=== PATIENT | female | born 1940 | race Caucasian/White ===

== ENCOUNTER 2017-01-22 22:45 | Emergency (ER) | payer MEDICARE, OTHER ==
--- NOTE | 2017-01-23 00:50 | ED ---
Head Injury - HPI Summary HPI Summary: 76F presents with head injury today. She states she had a couple drinks at [employer]. She then walked down the driveway and slipped on the ice. She landed on the left side of her face and left hip. She has minimal pain in left hip but is able to ambulate. She denies any chest pain, SOB, or abdominal pain. She denies any neck pain. She denies any upper extremity pain. She denies any LOC. She denies any nausea or vomiting. She takes a baby aspirin a day. She is not on blood thinners. - History Of Current Complaint Chief Complaint: EDHeadInjury Stated Complaint: FALL/ HEAD INJURY Time Seen by Provider: 01/23/17 00:23 Pain Intensity: 2 - Allergies/Home Medications Allergies/Adverse Reactions: Allergies Allergy/AdvReac Type Severity Reaction Status Date / Time Codeine Allergy Unknown Verified 10/15/13 12:57 Reaction Details PMH/Surg Hx/FS Hx/Imm Hx Endocrine/Hematology History: Denies: Hx Anticoagulant Therapy Cardiovascular History: Reports: Hx Hypertension Infectious Disease History: No Infectious Disease History: Denies: Traveled Outside the [place] in Last 30 Days - Family History Known Family History: Positive: Hypertension - Social History Alcohol Use: Daily Substance Use Type: Reports: None Smoking Status (MU): Former Smoker Review of Systems Negative: Fever Negative: Chest Pain Negative: Shortness Of Breath Positive: Bruising, Other - laceration left side of face Positive: Headache All Other Systems Reviewed And Are Negative: Yes Physical Exam Triage Information Reviewed: Yes Vital Signs On Initial Exam: Initial Vitals Temp Pulse Resp BP Pulse Ox 96.1 F 80 18 143/64 98 01/22/17 22:52 01/22/17 22:52 01/22/17 22:52 01/22/17 22:52 01/22/17 22:52 Vital Signs Reviewed: Yes Appearance: Positive: Well-Appearing Skin: Positive: Warm, Dry, Other - 1/2cm superficial laceration of left side of face Head/Face: Positive: Normal Head/Face Inspection, Other - contusion near left eye, no step off, salcedo sign Eyes: Positive: Normal, EOMI, FLORIN, Conjunctiva Clear ENT: Positive: Normal ENT inspection, Pharynx normal, TMs normal Neck: Positive: Other: - nontender neck Respiratory/Lung Sounds: Positive: Clear to Auscultation, Breath Sounds Present Cardiovascular: Positive: Normal, RRR Abdomen Description: Positive: Nontender, Soft Bowel Sounds: Positive: Present Neurological: Positive: Sensory/Motor Intact, Alert, Oriented to Person Place, Time, CN Intact II-III Psychiatric: Positive: Normal - Pamela Coma Scale Coma Scale Total: 15 Procedures - Laceration/Wound Repair 1 Location: face Description: Linear Length, Depth and Shape: 1/2cm superficial Irrigated w/ Saline (ccs): 30 Laceration/Wound Explored: no foreign body removed Closure: Skin Adhesive Diagnostics - Vital Signs Vital Signs Temp Pulse Resp BP Pulse Ox 01/22/17 22:52 96.1 F 80 18 143/64 98 - Laboratory Lab Statement: Any lab studies that have been ordered have been reviewed, and results considered in the medical decision making process. - CT brain CT Interpretation: No Acute Changes - no acute fracture. no acute hemorrhage CT Interpretation Completed By: Radiologist Head Injury Course/Dx Course Of Treatment: 76F presents with head injury today. She states she had a couple drinks at [place] [employer]. She then walked down the driveway and slipped on the ice. She landed on the left side of her face and left hip. She has minimal pain in left hip but is able to ambulate. She denies any chest pain, SOB, or abdominal pain. She denies any neck pain. She denies any upper extremity pain. She denies any LOC. She denies any nausea or vomiting. She takes a baby aspirin a day. She is not on blood thinners. on exam no step off, has contusion around left eye with small 1/2cm superficial laceration that cleaned and closed with glue. normal neuro exam. CT brain neg with hematoma superficial near left. warned of signs to return to ED for. patient understand and agrees with plan. - Diagnoses Differential Diagnosis/HQI/PQRI: Concussion Without LOC, Contusion, Laceration Provider Diagnoses: Head injury, Facial contusion, Laceration of face Discharge - Discharge Plan Condition: Good Disposition: HOME Patient Education Materials: Head Injury (ED), Facial Contusion (ED) Referrals: Roma Bentley MD [Primary Care Provider] - Additional Instructions: Glue will fall off on own Place ice on area as needed Take Tylenol for headache every 6 hours Follow up with primary within 5 days Return to ED if develop vomiting, severe headache, change in behavior, or any new or worsening symptoms
[2017-01-23 01:37] VITALS: BP 152/78
--- NOTE | 2017-01-23 07:29 | RAD ---
INDICATION: Intracranial injury COMPARISON: None TECHNIQUE: Noncontrast axial source images were acquired from the skull base to the vertex. FINDINGS: Ventricles/sulci: The ventricles and cisterns are normal in size and configuration for age. Brain parenchyma: There is minor periventricular and subcortical white matter change compatible with chronic ischemia. Intracranial hemorrhage:None. Extra-axial spaces: There are no abnormal extra axial fluid collections or evidence of extra-axial mass. Calvarium: There is no calvarial fracture or other acute calvarial abnormality. There is hyperostosis of the frontal bone Scalp: There is left periportal soft tissue swelling. Paranasal sinuses/mastoid: The paranasal sinuses and mastoid air cells are clear. Other: None. IMPRESSION: No acute intracranial findings. Left periorbital soft tissue swelling
== END 2017-01-23 01:36 | disposition home or self-care (01) ==
LOC: ED 22:45
DX: S09.90XA Unspecified injury of head, initial encounter (principal); S01.81XA Laceration without foreign body of other part of head, initial encounter; S00.83XA Contusion of other part of head, initial encounter; W00.0XXA Fall on same level due to ice and snow, initial encounter; Y93.9 Activity, unspecified; Y92.9 Unspecified place or not applicable; Z79.82 Long term (current) use of aspirin; Z87.891 Personal history of nicotine dependence
CPT/HCPCS: 12011; 70450; 99282

== ENCOUNTER → 2017-10-21 10:44 | Day surgery (SDC) | payer MEDICARE ==
[~2017-10-21 10:44] MED LIST: Diazepam TAB(*) 5 MG ONE; Heparin 2 UNITS/ML IVPREMIX* 1,000 ML IV ONE; Heparin(*) 1000 UNIT/ML 10 ML VIAL CATH LAB IV ONE; Iodixanol* (CONTRAST) 320 MG/ML 100 ML SDV ONE; Lidocaine 1% INJ* 10 MG/ML 30 ML SDV ONE; Midazolam* 1 MG/ML 10 ML VIAL (10 MG) ONE; NS 0.9% 1000 ML* 1,000 ML IV SCH; VERAPAMIL 2.5 MG/ML 2 ML VIAL ** 5 mg/2 ml ONE; diPHENhydraMINE PO* 25 MG ONE; fentaNYL* 50 MCG/ML 2 ML VIAL (100 MCG VIAL) ONE; nitroGLYCERIN DRIP* 25,000 MCG/250 ML BTL ONE
[2017-10-21 11:42] LABS: ABS Basophils 0 10^3/ul (0-0.2); ABS Eosinophils 0.1 10^3/ul (0-0.6); ABS Lymphocytes 1.8 10^3/ul (1.0-4.8); ABS Monocytes 0.5 10^3/ul (0-0.8); ABS Neutrophils 2.8 10^3/ul (1.5-7.7); ABS Nucleated RBC 0 10^3/ul; Eosinophil % 1.6 % (0-6); Hematocrit 41 % (35-47); Hemoglobin 14.1 g/dl (12.0-16.0); Lymphocyte % 34.8 % (25-47); Mean Corpuscular HGB Conc 35 g/dl (31-36); Mean Corpuscular Hemoglobin 32 pg (27-31); Mean Corpuscular Volume 92 fL (80-97); Mean Platelet Volume 8.1 um3 (7.4-10.4); Nucleated Red Blood Cells % 0.3; Platelet Count 332 10^3/ul (150-450); Red Blood Count 4.45 10^6/ul (4.00-5.40); Red Cell Distribution Width 14 % (10.5-15); White Blood Count 5.2 10^3/ul (3.5-10.8)
[2017-10-21 12:10] LABS: EGFR Non-African American 57.3 (>60)
[2017-10-21 15:39] VITALS: BP 130/68
--- NOTE | 2017-10-22 02:06 | CATH ---
CC: Dr. Roma Bentley; Dr. Tacho Escoto, [facility], [place], [place] * CARDIAC CATHETERIZATION: DATE OF PROCEDURE: 10/21/17 - [facility] CAT PROCEDURE: Cardiac catheterization including coronary angiography. INDICATION: Angina, despite maximum medical therapy. The patient is a 77-year-old female, who had an episode of significant chest pain, while she was in [place] this past spring. The patient did not seek medical attention at that time. When she got back to [place], I had seen her in consultation at that time, I had maximized her medical therapy. She underwent a stress test and echocardiogram. Her stress test showed significant chest pain with exertion and EKG changes, her perfusion images were completely normal. The patient has been on beta-blockers and amlodipine to maximum doses and despite that continues to have chest pain with exertion. Cardiac catheterization was recommended. DESCRIPTION OF PROCEDURE: The patient was brought to the procedure room in a fasting state. Informed consent had been obtained prior to the procedure. All labs were reviewed. The patient's right radial area was prepped and draped in the usual fashion. 1% lidocaine was used for local anesthesia. The radial artery was entered by a Seldinger technique and a guidewire was placed. Over the guidewire, a 6-[place] hydrophilic sheath was placed. The patient had an infusion of heparin, verapamil, and nitroglycerin at appropriate doses. The patient underwent coronary angiography using 6-[place] JL4 catheter and a 6- [place] AR1 catheter. At the end of the procedure, all sheaths and catheters were removed. The patient tolerated the procedure well with no complications. A total of 50 mL of Visipaque dye was used and a total of 7.6 minutes of fluoro time was used. FINDINGS: 1. Left main artery: The left main was normal in size. It bifurcated into the LAD and circumflex artery. There was no evidence of stenosis. 2. Left anterior descending artery: The LAD was normal in size. It gave off 1 diagonal vessel. There was no evidence of stenosis. 3. Left circumflex artery: The left circumflex artery was normal in size. It gave off 2 obtuse marginal branches. There was no evidence of stenosis. 4. Right coronary artery: The RCA was a large dominant vessel. The ostium of the right coronary artery had a 99% stenosis with heavy calcification. There was a sluggish flow through the mid right coronary artery at the distal portion of the right coronary artery that was complete occlusion. There was extensive collaterals from the LAD to the distal right coronary artery and posterolateral branch. 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 RECOMMENDATION: The patient will continue on maximum medical therapy. The patient will be evaluated for possible rotablation of the right coronary artery to reestablish flow. [id number]/[facility] #: [id number] [facility]ALTH SYSTEMEmmanuel
== END | disposition home or self-care (01) ==
LOC: CHICATH 10:44
PROVIDERS: ATTEND Specialist
DX: I25.10 Atherosclerotic heart disease of native coronary artery without angina pectoris (principal); I25.84 Coronary atherosclerosis due to calcified coronary lesion; I25.82 Chronic total occlusion of coronary artery; R07.9 Chest pain, unspecified; R94.39 Abnormal result of other cardiovascular function study
CPT/HCPCS: 36415; 80048; 85025; 93454; 99156; 99157; A9270-GY; C1887; J1644; J2250; J3010

== ENCOUNTER 2023-10-08 08:38 | Observation (INO) ==
[2023-10-08 08:56] LABS: ABS Eosinophils 0.1 10^3/uL (0.0-0.5); ABS Lymphocytes 1.9 10^3/uL (1.0-4.8); ABS Monocytes 0.3 10^3/uL (0.0-0.9); ABS Neutrophils 3.1 10^3/uL (1.5-7.6); ABS Nucleated RBC 0.01 10^3/ul; Eosinophil % 1.3 %; Hematocrit 40.9 % (35-45); Hemoglobin 13.8 g/dL (11.5-14.3); Lymphocyte % 35.1 %; Mean Corpuscular Hgb Conc 33.8 g/dL (31-36); Mean Corpuscular Volume 91.6 fL (80-97); Mean Platelet Volume 8.3 fL (7.5-11.2); Nucleated Red Blood Cells % 0.2 %/100WBC (0.0-0.8); Platelet Count 313 10^3/uL (150-450); Red Blood Count 4.47 10^6/uL (3.63-4.92); Red Cell Distribution Width 12.8 % (12-17); White Blood Count 5.5 10^3/uL (3.8-11.8)
[2023-10-08] MEDS: Iodixanol (CONTRAST) 320 MG/ML 100 ML SDV IV ONE (09:02)
[2023-10-08 09:06] LABS: Activated Partial Thrombo Time 28.7 seconds (26.0-38.0); INR 1.07 (0.85-1.14)
[2023-10-08] MEDS: Ondansetron 4 mg VIAL 2 MG/ML 2 ml VIAL IV ONE (09:29)
[2023-10-08] MEDS: NS 0.9% 1000 ml BAG 1,000 ML IV ONE (09:29)
[2023-10-08 09:46] LABS: Albumin 4.5 g/dL (3.2-5.2); Albumin/Globulin Ratio 1.5 (1-3); Calcium 9.5 mg/dL (8.6-10.3); Creatinine, Serum 0.84 mg/dL (0.51-0.95); Direct Bilirubin 0.1 mg/dL (0.03-0.18); HDL Cholesterol 86.2 mg/dL; Indirect Bilirubin 0.7 mg/dL (0.3-1.0); Potassium 3.5 mmol/L (3.5-5.0); Total Bilirubin 0.8 mg/dL (0.2-1.0); Total Protein 7.5 g/dL (6.4-8.9); eGFR CKD-EPI 69.8 (>60)
[2023-10-08 10:37] LABS: High Sensitivity Troponin 1 Hr < 3 pg/mL (<15)
[2023-10-08] MEDS: Enoxaparin 40 MG/0.4 ML SYR SUBCUT SCH (12:42)
[2023-10-08] MEDS ORDERED: Sulfur Hexaflouride MICROSPHR 25 MG VIAL IV PRN (14:33)
[2023-10-09 06:00] LABS: Hematocrit 39.5 % (35-45); Hemoglobin 13.1 g/dL (11.5-14.3); Mean Corpuscular Hemoglobin 30.4 pg (27-33); Mean Corpuscular Hgb Conc 33.2 g/dL (31-36); Mean Corpuscular Volume 91.6 fL (80-97); Mean Platelet Volume 8.2 fL (7.5-11.2); Platelet Count 293 10^3/uL (150-450); Red Blood Count 4.31 10^6/uL (3.63-4.92); Red Cell Distribution Width 12.9 % (12-17)
[2023-10-09 06:49] LABS: Calcium 8.7 mg/dL (8.6-10.3); Creatinine, Serum 0.71 mg/dL (0.51-0.95); Potassium 3.1 mmol/L (3.5-5.0); eGFR CKD-EPI 85.4 (>60)
[2023-10-09] MEDS: KCL 20 MEQ/100 ML IVPREMIX 20 MEQ/100 ML BAG IV SCH (09:44)
[2023-10-10 06:26] LABS: ABS Eosinophils 0.1 10^3/uL (0.0-0.5); ABS Lymphocytes 2.1 10^3/uL (1.0-4.8); ABS Monocytes 0.7 10^3/uL (0.0-0.9); ABS Neutrophils 4.1 10^3/uL (1.5-7.6); ABS Nucleated RBC 0.01 10^3/ul; Hematocrit 38.9 % (35-45); Hemoglobin 13.2 g/dL (11.5-14.3); Lymphocyte % 30.3 %; Mean Corpuscular Hemoglobin 31.2 pg (27-33); Mean Corpuscular Hgb Conc 34.1 g/dL (31-36); Mean Corpuscular Volume 91.6 fL (80-97); Mean Platelet Volume 8.7 fL (7.5-11.2); Nucleated Red Blood Cells % 0.1 %/100WBC (0.0-0.8); Platelet Count 296 10^3/uL (150-450); Red Blood Count 4.24 10^6/uL (3.63-4.92); Red Cell Distribution Width 13.1 % (12-17)
[2023-10-10 06:48] LABS: Creatinine, Serum 0.78 mg/dL (0.51-0.95); Potassium 3.9 mmol/L (3.5-5.0); eGFR CKD-EPI 76.3 (>60)
[2023-10-10 13:32] VITALS: BP 124/70
== END 2023-10-10 14:45 | disposition home or self-care (01) ==
LOC: ED 08:38 → EDHOLD 08:38 → SUATTDRO 10:46 → MED 12:15
PROVIDERS: ADMIT Internal Medicine; ATTEND Internal Medicine